=== PATIENT | male | born 1970 | race Hispanic/Latino ===

== ENCOUNTER 2019-03-18 05:43 | Day surgery (SDC) | payer OTHER ==
[2019-03-17 13:41] VITALS: BP 115/74
[2019-03-17 13:43] LABS: BASOPHILS % (AUTO) 0.1 % (0.0-5.0); EOSINOPHILS % (AUTO) 2.3 % (0.0-8.0); HEMATOCRIT 41.2 % (42-54); LYMPHOCYTES % (AUTO) 30.9 % (21.0-51.0); MEAN CORPUSCULAR HEMOGLOBIN 27.6 pg (27.0-33.0); MEAN CORPUSCULAR HGB CONC 33.6 g/dL (32.0-36.0); MEAN CORPUSCULAR VOLUME 82.3 fL (79-99); MONOCYTES % (AUTO) 10.5 % (3.0-13.0); NEUTROPHILS % (AUTO) 56.2 % (40.0-77.0); NUCLEATED RED BLOOD CELLS 0.1 % (0.0-0.19); PLATELET COUNT (AUTO) 242 K/uL (130-400); RED BLOOD CELL COUNT(AUTO) 5.01 MIL/uL (4.50-6.20); RED CELL DISTRIBUTION WIDTH 13.7 % (11.0-15.5); WHITE BLOOD COUNT (AUTO) 6.1 K/uL (4.8-10.8)
--- NOTE | 2019-03-17 15:10 | NUR ---
BLOOD INFORMED NAVJOT AT DR. العراقي'S OFFICE OF PT REFUSING BLOOD. SHE WILL INFORM DR. العراقي
[2019-03-18] VITALS (18 sets, daily range): BP systolic 103–127; BP diastolic 58–84
[~2019-03-18] VITALS: Ht 170.2 cm; Wt 75.1 kg
[~2019-03-18 05:43] MED LIST: IBUP-2271 PO
[2019-03-18] MEDS ORDERED: LACTATED RINGERS 1000ML 1,000 ML IV SCH (06:00)
[2019-03-18] MEDS ORDERED: LIDOCAINE PF 2% 5ML ABBOJECT ONE (07:21)
[2019-03-18] MEDS ORDERED: MIDAZOLAM HCL 1 MG/ML 2ML VIAL ONE (07:22)
[2019-03-18] MEDS ORDERED: ROCURONIUM 10MG/1ML SYR 10 MG/ML ML ONE (07:23)
[2019-03-18] MEDS ORDERED: PROPOFOL 10 MG/ML 20ML VIAL IV ONE (07:23)
[2019-03-18] MEDS ORDERED: ONDANSETRON HCL 4 MG/2 ML VIAL ONE (07:23)
[2019-03-18] MEDS ORDERED: FENTANYL CITRATE PF 50 MCG/1 ML 2ML VIAL ONE (07:24)
[2019-03-18] MEDS ORDERED: ROPIVACAINE 0.5% 5MG/ML 30ML IJ ONE (07:27)
--- NOTE | 2019-03-18 07:30 | NUR ---
POTENTIAL FOR INFECTION: SHAVED WHOLE ABDOMEN TO BILATERAL GROIN AREA PER SATHISH BARONE.
[2019-03-18] MEDS ORDERED: EPHEDRINE SULFATE 50 MG/ML AMPULE ONE (09:05)
[2019-03-18] MEDS ORDERED: GLYCOPYRROLATE 1 MG/5 ML SYRINGE ONE (09:11)
[2019-03-18] MEDS ORDERED: NEOSTIGMINE 5MG/5ML SYR IV ONE (09:12)
[2019-03-18] MEDS ORDERED: KETOROLAC TROMETHAMINE 30MG/ML ONE (09:13)
[2019-03-18] MEDS ORDERED: MEPERIDINE-PF 25 MG/ML SYG ONE ×2 (09:48→09:59)
--- NOTE | 2019-03-18 11:10 | NUR ---
PT LEFT VIA WHEELCHAIR PVT CAR, D/C INSTRUCTION AND RX SCRIPT GIVEN TO . NO COMPLICATION UPON D/C PT. STABLE
== END 2019-03-18 11:10 | disposition home or self-care (01) ==
LOC: DAH 05:43
PROVIDERS: ATTEND Surgery
DX: K40.90 Unilateral inguinal hernia, without obstruction or gangrene, not specified as recurrent (principal); Z98.890 Other specified postprocedural states
CPT/HCPCS: 36415; 49505; 64425; 76942; 85025; A4215; A4221; A4222; A4223; A4344; A4450; A4452; A4663; A6260; C1729; C1781; J1885; J2001; J2175 ×2; J2250; J2405; J2704; J2710; J2795; J3010; J3490 ×2; J7120

== ENCOUNTER 2019-03-26 16:38 | Emergency (ER) | payer OTHER ==
[2019-03-26 17:38] LABS: APPEARANCE,URINE Clear (CLEAR); BASOPHILS % (AUTO) 0.3 % (0.0-5.0); BILIRUBIN,URINE Negative (NEGATIVE); COLOR,URINE Yellow (YELLOW); EOSINOPHILS % (AUTO) 3.6 % (0.0-8.0); GLUCOSE, URINE (UA) Negative (NEGATIVE); HEMATOCRIT 37.1 % (42-54); KETONES,URINE Negative (NEGATIVE); LEUKOCYTE ESTERASE ,URINE Negative (NEGATIVE); LYMPHOCYTES % (AUTO) 30.4 % (21.0-51.0); MEAN CORPUSCULAR HEMOGLOBIN 27.6 pg (27.0-33.0); MEAN CORPUSCULAR HGB CONC 33.8 g/dL (32.0-36.0); MEAN CORPUSCULAR VOLUME 81.8 fL (79-99); MONOCYTES % (AUTO) 11.2 % (3.0-13.0); NEUTROPHILS % (AUTO) 54.5 % (40.0-77.0); NITRATE,URINE Negative (NEGATIVE); OCCULT BLOOD,URINE Trace (NEGATIVE); PH,URINE 5.5 (5.0-8.0); PLATELET COUNT (AUTO) 276 K/uL (130-400); PROTEIN,URINE Negative (NEGATIVE); RED BLOOD CELL COUNT(AUTO) 4.53 MIL/uL (4.50-6.20); RED CELL DISTRIBUTION WIDTH 13.4 % (11.0-15.5); WHITE BLOOD COUNT (AUTO) 4.9 K/uL (4.8-10.8)
[2019-03-26 17:47] LABS: CREATININE 0.8 mg/dL (0.5-1.5); POTASSIUM 3.8 mmol/L (3.5-5.1)
[2019-03-26] MEDS ORDERED: KETOROLAC TROMETHAMINE 60 MG/2 ML VIAL ONE (17:51)
[2019-03-26 17:52] LABS: ALBUMIN 3.5 g/dL (3.5-5.0); BILIRUBIN,TOTAL 0.3 mg/dL (0.2-1.0); TOTAL PROTEIN, SERUM 7.7 g/dL (6.0-8.3)
[2019-03-26] MEDS ORDERED: SODIUM CHLORIDE 0.9% 1000ML 1,000 ML IV ONE (17:52)
[2019-03-26] MEDS ORDERED: IOHEXOL-350 75 ML VIAL IV ONE (17:57)
[2019-03-26 18:41] LABS: BACTERIA,URINE Few /HPF (None Seen); RBC,URINE 0-1 /HPF (0-1); SQUAMOUS EPITHELIAL CELL,UR 0-2 /HPF (0-2); WBC,URINE 0-1 /HPF (0-1)
[2019-03-26] MEDS ORDERED: ZOSYN 3.375GM+NS 50ML 50 ML IV ONE (19:33)
[2019-03-26] MEDS ORDERED: VANCOMYCIN 1GM+NS 250ML 250 ML IV ONE (19:48)
== END 2019-03-26 21:15 | disposition home or self-care (01) ==
LOC: EDH 16:38
DX: N43.3 Hydrocele, unspecified (principal); L03.311 Cellulitis of abdominal wall
CPT/HCPCS: 36415; 74177; 76870; 80053; 81001; 85025; 87040 ×2; 96365; 96367; 96375; 99285; J1885; J2543; J3370; J7030; Q9967